=== PATIENT | male | born 1950 | race Caucasian/White ===

== ENCOUNTER → 2021-02-04 | Outpatient (CLI) | payer BC, OTHER ==
--- NOTE | 2021-02-27 13:38 | PFR/MVV ---
[facility] [place] [address] PULMONARY FUNCTION MVV/REPORT Name: RYLIEGAYLA TAVERAS Room #: REG APRIL Miryam.#: [id number] Admission: 02/04/21 Attend Phys: Dalton Tse MD Discharge: Date of : 54 Report #: [id number] THIS REPORT FOR: //name// COPIES FOR: AGE: 70 SEX/RACE: M/C >> SPIROMETRY: (BTPS) Height: 69 in cm Weight: 200 lbs kg Exam Date: 02/04/21 PRE-RX POST-RX PRED BEST %PRED BEST %PRED %CHG FVC LITERS . 4.434 . 4.37 . 100 . 4.53 . 104 . 4 FEV1 LITERS . 2.96 . 3.12 . 105 . 3.24 . 110 . 4 FEV1/FVC % . 69 . 71 . 103 . 72 . 104 . 0 MWN41-35% L/Sec . 2.72 . 2.02 . 74 . 2.44 . 90 . 21 PEF L/SEC . 8.22 . 9.93 . 121 . 9.88 . 120 . 0 FEF50/FIF50 UNITLESS . . . . . . MVV L/Min . 129 . 121 . 94 f 1/Min . . . >> LUNG VOLUMES: (BTPS) PRE-RX POST-RX PRED AVG %PRED AVG %PRED %CHG VC Liters . 4.34 . 5.01 . 115 . . . TLC Liters . 6.42 . 6.52 . 101 . . . RV Liters . 2.47 . 1.51 . 61 . . . RV/TLC % . 40 . 23 . 58 . . . FRC PL Liters . 3.48 . 1.85 . 53 . . . FRC N2 Liters . . . . . . ERV Liters . 1.49 . 0.50 . 34 . . . IC Liters . 2.98 . 4.67 . 157 . . . >> DIFFUSION: DLCO ml/Min/mmHg . 22.9 . 22.7 . 99 . . . DL Jeffrey ml/Min/mmHg . 22.9 . 22.7 . 99 . . . DLCO/VA ml/Min/mmHg . 3.60 . 3.82 . 106 . . . VA Liters . 7.06 . 5.93 . 84 . . . [address] [address] PULMONARY FUNCTION MVV/REPORT Name: GAYLA BURROWS Room #: REG [facility].#: [id number] Admission: 02/04/21 Attend Phys: Dalton Tse MD Discharge: Date of : 54 Report #: [id number] COMMENTS: COMMENTS: >> RESISTANCE: PRE-RX PRED AVG %PRED Raw Total cmH20/L/Sec . . 4.48 . Raw Insp cmH20/L/Sec . . 2.14 . Raw Exp cmH20/L/Sec . . 1.84 . Raw cmH20/L/Sec . 1.30 . 2.29 . 177 Gaw L/Sec/cmH20 . 0.835 . 0.436 . 52 sRaw cmH20 Sec . 4.52 . 9.82 . 217 sGaw l/cmH20 Sec . 0.221 . 0.102 . 46 Vtq Liters . . 4.28 . # = OUTSIDE 95% CONFIDENCE INTERVAL CALIBRATION: PRED: 3.00 ACTUAL: EXP 3.01 INSP 3.02 [facility] [place] [id number] N-[id number] >> INTERPRETATION/IMPRESSION: DATE OF SERVICE: 02/04/2021 PULMONARY FUNCTION STUDIES SPIROMETRY: FEV1 is 3.12 liters (105% predicted), FVC is 4.37 liters (100% predicted), FEV1/FVC ratio is 71%. There is no significant response to bronchodilator therapy. Total lung capacity is 6.52 liters (101% predicted). RV is 1.51 liters (61% predicted). Diffusing capacity is normal. IMPRESSION: Pulmonary function studies are essentially normal. There is no significant response to bronchodilator therapy. Diffusing capacity is normal. <ELECTRONICALLY SIGNED> By: Fercho Ruiz MD 02/27/21 1338 Fercho Ruiz MD /nt
== END ==
LOC: PUL 10:22
PROVIDERS: ATTEND Internal Medicine
DX: R06.00 Dyspnea, unspecified (principal); Z20.822 Contact with and (suspected) exposure to COVID-19

== ENCOUNTER → 2021-02-18 | Outpatient (CLI) | payer BC, OTHER | LOC: SJCVCIMAG 07:45 | PROVIDERS: ATTEND Internal Medicine | DX: I08.8 Other rheumatic multiple valve diseases (principal) ==